=== PATIENT | male | born 1950 | race Caucasian/White ===

== ENCOUNTER 2017-02-03 10:20 | Inpatient (IN) ==
--- NOTE | 2017-02-03 11:29 | Emergency Department Note ---
Disposition Clinical Impression: Cellulitis Qualifiers: Site of cellulitis: extremity Site of cellulitis of extremity: lower extremity Laterality: left Qualified Code(s): L03.116 - Cellulitis of left lower limb Disposition: Admitted As Inpatient Extremity Problem HPI - General Chief complaint: ED Extremity Problem,Nontraumatic Stated complaint: worsening, bacterial infection L leg Time Seen by Provider: 02/03/17 10:30 Source: patient Limitations: no limitations Nursing Notes Reviewed: Yes Vital Signs Reviewed: Yes - History of Present Illness HPI Narrative: I did review the previous record and the patient was seen yesterday at the wound care clinic and was recommended to be admitted because he did not feel cefdinir antibiotics with a positive Pseudomonas culture and the patient refused admission yesterday but is willing to be admitted today. He does have 2 months of ulceration on the posterior aspect of the left calf area. In review of the old record this was thought to be from his significant lymphedema. He denies any associated fever or vomiting or confusion. He does have drainage of purulent material. He does not have any associated numbness. Social history: Smoking, no alcohol. Is here with his and grandson Pain Scale: 0 - Related Data Home Medications Medication Instructions Recorded Confirmed Lisinopril [Zestril] 10 mg PO DAILY 01/18/16 02/03/17 Montelukast Sodium [Singulair] 10 mg PO DAILY 01/18/16 02/03/17 Tramadol HCl [Ultram] 50 mg PO DAILY PRN 01/18/16 02/03/17 Albuterol Sulfate [Proair Hfa] 1 puff IH Q4H PRN 12/02/16 02/03/17 Fluticasone/Salmeterol [Advair 1 each IH BID 12/02/16 02/03/17 250-50 Diskus] Furosemide [Lasix] 40 mg PO DAILY 02/03/17 02/03/17 Ipratropium/Albuterol Neb [Duoneb] 3 ml IH Q6HR PRN 02/03/17 02/03/17 Previous Rx's Medication Instructions Recorded Ammonium Lactate [Amlactin] 400 gm TP DAILY #1 bottle 12/29/16 Allergies Allergy/AdvReac Type Severity Reaction Status Date / Time levofloxacin Allergy Swelling Verified 02/03/17 10:28 of Lip/Tongue/Throat Penicillins Allergy Swelling Verified 02/03/17 10:28 of Lip/Tongue/Throat Review of Systems: Constitutional: No fever Vision: No blurred vision ENT: No rhinorrhea Respiratory: No cough Allergic: No allergies : No blood in urine GI: No blood in stool Hematologic: No bruising Dermatologic: No skin rash Musculoskeletal: + pain in the extremities left lower extremity but it is minimal to moderate and not severe pain Neuro: No numbness of the extremities Past Medical History - Past Medical History Medical history: Reports: COPD, hypertension Surgical history: Reports: appendectomy, herniorrhaphy (X2) Psychiatric history: Reports: no psych history - Social History Smoking Status: Current every day smoker Smokeless Tobacco Status: No Alcohol use: Reports: none Drug use: Reports: none Physical Exam Patient did feel outpatient antibiotics and does have a Pseudomonas infection does have significant lymphedema with nonhealing ulceration for less several months and I did attempt to contact the treating provider from yesterday however they do not have admitting privileges here and the other note from yesterday was from the emergency medicine provider so the patient will be started on antibiotics here and be admitted to the hospitalist [id number] - General Limitations: no limitations General appearance: alert, in no apparent distress Course Vital Signs Temperature 98.4 F 02/03/17 10:23 Pulse Rate 93 02/03/17 10:23 Respiratory Rate 20 02/03/17 10:23 Blood Pressure 145/82 02/03/17 10:23 O2 Sat by Pulse Oximetry 95 02/03/17 10:23 Temperature 99.3 F 02/03/17 19:02 Pulse Rate 96 02/03/17 19:02 Respiratory Rate 16 02/03/17 20:23 Blood Pressure 137/77 02/03/17 19:02 O2 Sat by Pulse Oximetry 92 02/03/17 20:23 Oxygen Delivery Oxygen Delivery Room Air Extremity Problem, Nontraumati - MDM Narrative Medical decision making narrative: I did review the culture results, positive for pseudomonas, the patient started on antibiotics. Case discussed with the hospitalist who except the patient for admission. He did receive pain medication. Is admitted. 1523 - Medical Records Medical records reviewed: Yes I reviewed the patient's medical records. - Lab Data Lab results reviewed: Yes I reviewed the patient's lab results. Result diagrams: 02/03/17 11:40 12/15/17 11:40 Lab Results 02/03/17 02/03/17 02/03/17 Range/Units 11:40 11:40 11:40 WBC 9.2 (4.3-11.1) K/mcL RBC 5.13 (4.19-5.50) M/mcL Hgb 15.1 (12.9-16.9) g/dL Hct 47.2 (37.5-50.1) % MCV 92.0 (83.0-100.0) fL MCH 29.4 (28.0-33.3) pg MCHC 32.0 (31.6-35.5) g/dL RDW 14.4 (11.5-14.5) % Plt Count 256 (140-400) K/mcL MPV 10.4 (9.4-12.4) fL Sodium 140 (136-145) mEq/L Potassium 3.9 (3.5-4.5) mEq/L Chloride 102 (98-109) mEq/L Carbon Dioxide 30 H (19-29) mEq/L BUN 12 (8-26) mg/dL Creatinine 0.73 (0.72-1.25) mg/dL Est GFR ( Amer) > 60 (> 60) Est GFR (Non-Af Amer) > 60 (> 60) BUN/Creatinine Ratio 16 (6-26) Glucose 97 (70-99) mg/dL Calculated Osmolality 290 (280-300) Lactic Acid 1.6 (0.5-2.2) mmol/L Calcium 9.0 (8.6-10.8) mg/dL
[2017-02-03 11:59] LABS: BUN/Creatinine Ratio 16 (6-26); Blood Urea Nitrogen 12 mg/dL (8-26); Carbon Dioxide 30 mEq/L (19-29); Chloride 102 mEq/L (98-109); Glucose 97 mg/dL (70-99); Osmolality,Calculated 290 (280-300); Potassium 3.9 mEq/L (3.5-4.5); Sodium 140 mEq/L (136-145); eGFR For African Americans > 60 (> 60); eGFR For Non-African Americans > 60 (> 60)
[2017-02-03 12:00] LABS: Hematocrit 47.2 % (37.5-50.1); Hemoglobin 15.1 g/dL (12.9-16.9); Mean Corpuscular Hemoglobin 29.4 pg (28.0-33.3); Mean Platelet Volume 10.4 fL (9.4-12.4); Platelet Count 256 K/mcL (140-400); Red Blood Count 5.13 M/mcL (4.19-5.50); Red Cell Distribution Width 14.4 % (11.5-14.5)
[2017-02-03] MEDS ORDERED: Ondansetron 4 MG/2 ML VIAL IVP ONE (14:21)
[2017-02-03] MEDS ORDERED: *HR* HYDROmorphone (PF) 1 MG/ML SYRINGE IVP ONE (14:21)
[2017-02-03] MEDS: Meropenem 1,000 MG in Water for inj. (sterile) 10 ML IVP SCH ×2 (14:40→23:45)
[2017-02-03] MEDS ORDERED: traMADol 50 MG TABLET PO PRN (15:51)
[2017-02-03] MEDS ORDERED: Naloxone 0.4 MG/ML INJ IVP PRN ×2 (15:58→16:18)
[2017-02-03] MEDS ORDERED: Acetaminophen 325 MG TABLET PO PRN (15:58)
[2017-02-03] MEDS ORDERED: *HR* Morphine 2 MG/ML SYRINGE IVP PRN (15:58)
[2017-02-03] MEDS ORDERED: Meropenem 1,000 MG in 0.9 % Sodium Chloride Mini Bag 100 ML IVPB SCH (16:00)
[2017-02-03] MEDS: Ipratropium/Albuterol Neb 3 ML IH PRN ×2 (16:04→22:36)
--- NOTE | 2017-02-03 16:08 | Internal Med History&Physical ---
Date of Encounter: 02/03/17 Time of Encounter: 16:05 Assessment and Plan (1) Cellulitis Current visit: Yes Status: Acute Chronic Cellulitis of left lower extremity, requiring greater than two-month history of left posterior lower leg ulcer Being followed by [facility] wound care in [place]; wound care physician requested patient to hospital for IV antibiotics Continues to have edema, erythema and clear serous drainage Was initially treated at [facility] where cultures grew Pseudomonas and group B strep We will start meropenem to cover Pseudomonas and strep Obtain additional wound cultures to further guide antibiotic coverage and adjust as clinically appropriate Consult wound management team for cleansing and dressing recommendations Tramadol and IV morphine for pain management CBC BMP in the morning Qualifiers: Site of cellulitis: extremity Site of cellulitis of extremity: lower extremity Laterality: left Qualified Code(s): L03.116 - Cellulitis of left lower limb (2) COPD exacerbation Current visit: Yes Status: Acute Admits to an increase in wheezing over the last couple of days. Final wheezing per auscultation bilateral anterior posterior lung Continue bronchodilators at home dose And 40 mg IV push Solu-Medrol every 8 hours Remains on room air with a sPO2 of 93% without any distress; O2 support PRN with nasal cannula, continuous SPO2 monitoring (3) Hypertension Current visit: Yes Status: Acute History of essential hypertension. Blood pressure currently stable. Continue SRINATH inhibitor Qualifiers: Hypertension type: essential hypertension Qualified Code(s): I10 - Essential (primary) hypertension (4) Tobacco abuse Current visit: Yes Status: Acute Continues to smoke Tobacco cessation counseling provided Does not wish to quit at this time Denies need for nicotine patch (5) Obesity Current visit: Yes Status: Acute Morbidly obese Discussed lifestyle modifications including exercise and diet Denies need for dietary consult Qualifiers: Obesity type: due to excess calories Obesity classification: adult class 3 (BMI >= 40) Serious obesity comorbidity presence: without serious comorbidity Body mass index: BMI 40.0-44.9 Qualified Code(s): E66.01 - Morbid (severe) obesity due to excess calories; Z68.41 - Body mass index (BMI) 40.0-44.9, adult ; Z68.41 - Body mass index (BMI) 40.0-44.9, adult; Z68.41 - Body mass index (BMI ) 40.0-44.9, adult; Z68.41 - Body mass index (BMI) 40.0-44.9, adult (6) DVT prophylaxis Current visit: Yes Status: Acute History DVT due to decreased mobility associated hospital stay Heparin subcutaneous 5000 units twice a day Internal Medicine - H&P: HPI Chief complaint: Worsening of chronic left leg wound Admitted From: Home Plans for Post Hospital Care: Home History of present illness: Mr. García is a 66 year old male with the only PMH of COPD and HTN. He presents today with a greater than two-month history of a left posterior calf wound. The patient has been following with the [facility] wound team and a [facility]. He has previously been on antibiotics without any improvement. Most recently was on antibiotics for a full 10 day course without any improvement at all. Due to continued drainage is so his wound care provider yesterday who advised him to come to the ED for admission for IV antibiotic therapy. He denies any fever or chills, fatigue, and malaise, nausea, vomiting , diarrhea, numbness and tingling. He admits to burning, drainage and additional swelling. Past Med Surg Social Fam HX - Past Medical History Medical history: COPD, hypertension Psychiatric history: no psych history - Past Surgical History Surgical History: appendectomy, herniorrhaphy (X2) - Social History Smoking Status: Current every day smoker Smokeless Tobacco Status: No Alcohol use: none Drug use: none - Additional Family History Additional family history: Noncontributory Internal Medicine - H&P: Meds Lisinopril [Zestril] 10 mg PO DAILY 01/18/16 [History] Montelukast Sodium [Singulair] 10 mg PO DAILY 01/18/16 [History] Tramadol HCl [Ultram] 50 mg PO DAILY PRN 01/18/16 [History] Albuterol Sulfate [Proair Hfa] 1 puff IH Q4H PRN 12/02/16 [History] Fluticasone/Salmeterol [Advair 250-50 Diskus] 1 each IH BID 12/02/16 [History] Ammonium Lactate [Amlactin] 400 gm TP DAILY #1 bottle 12/29/16 [Rx] Furosemide [Lasix] 40 mg PO DAILY 02/03/17 [History] Ipratropium/Albuterol Neb [Duoneb] 3 ml IH Q6HR PRN 02/03/17 [History] 3 Allergy/AdvReac Type Severity Reaction Status Date / Time levofloxacin Allergy Swelling Verified 02/03/17 10:28 of Lip/Tongue/Throat Penicillins Allergy Swelling Verified 02/03/17 10:28 of Lip/Tongue/Throat All Systems PM: A 10-system review of systems was performed and is negative for pertinent findings except as documented above in the HPI. - Constitutional Constitutional: no chills, no fever(s), no night sweats - EENT Eyes: no change in vision, no discharge, no pain, no photophobia Ears: no ear discharge, no ear pain, no tinnitus Nose, mouth and throat: no dysphagia, no nasal discharge, no neck pain, no sore throat - Cardiovascular Cardiovascular ROS IM: no chest pain, no diaphoresis, no dyspnea, no lightheadedness, no palpitations, no syncope - Respiratory Respiratory: wheezing (chronic worse over the last few days), no cough, no dyspnea, no excessive phlegm production - Gastrointestinal Gastrointestinal: no abdominal pain, no diarrhea, no hematemesis, no hematochezia, no melena, no nausea, no vomiting - Musculoskeletal Musculoskeletal ROS IM: no numbness, no tingling - Integumentary Integumentary IM: as per HPI, non-healing lesions, sores, no rash, no unusual bruising - Neurological Neurological ROS: no confusion, no convulsions, no focal weakness, no numbness, no tingling, no tremor(s) - Hematologic/Lymphatic Hematologic/Lymphatic: no easy bruising - Constitutional Vitals: Temp Pulse Resp BP Pulse Ox 98.4 F 88 18 125/79 93 02/03/17 10:23 02/03/17 14:16 02/03/17 14:16 02/03/17 14:16 02/03/17 14:16 General appearance: Present: cooperative, A&O X 3, no acute distress, answers questions appropriately - Head Head exam: Present: atraumatic, normocephalic - Eye Eye exam: Present: PERRL, conjuntiva pink, sclera anicteric Pupils: Present: PERRL - Neck Neck exam general surgery: Present: supple, trachea midline. Absent: lymphadenopathy - Respiratory Respiratory exam: Present: CTAB, wheezes (fine). Absent: accessory muscle use, rales, rhonchi - Cardiovascular Cardiovascular exam: Present: RRR, +S1, +S2. Absent: diastolic murmur, gallop, rubs, systolic murmur - GI/Abdominal GI/Abdominal exam: Present: normal bowel sounds, soft, no peritoneal signs. Absent: distended, tenderness - Extremities Exam Extremities exam: Present: warm, radial pulses palpable and symmetrical. Absent : calf tenderness, cyanotic, pedal edema - Expanded Lower Extremities Exam Lower Leg exam: Present: erythema, swelling, tenderness 1 - Erythematous, swollen and tender leg wound with clear serous drainage - Neurological Exam Neurological exam: Present: CN II-XII intact, oriented X3, no focal deficits. Absent: pronater drift, facial droop, speech deficit - Skin Skin exam: Present: erythema. Absent: dry, intact Internal Med - H&P Results - Labs CBC & Chem 7: 02/03/17 11:40 02/03/17 11:40
[2017-02-03] MEDS: MethylPREDNISolone 40 MG/ML VIAL IVP SCH ×2 (18:36→23:45)
[2017-02-03] MEDS: *HR* Heparin 5,000 UNIT/ML VIAL SQ SCH (18:36)
[2017-02-03] MEDS: Budesonide/Formoterol 80/4.5 MDI IH SCH (20:22)
[2017-02-04] MEDS ORDERED: Meropenem 1,000 MG in Water for inj. (sterile) 10 ML IVPB SCH
[2017-02-04 05:31] LABS: Basophils % 0.2 %; Eosinophils % 0.1 %; Hematocrit 48.7 % (37.5-50.1); Hemoglobin 15.7 g/dL (12.9-16.9); Immature Granulocytes % 0.6 % (0-4); Lymphocytes # 0.8 K/mcL (0.6-4.6); Lymphocytes % 8.6 %; Mean Corpuscular HGB Conc 32.2 g/dL (31.6-35.5); Mean Corpuscular Hemoglobin 29.4 pg (28.0-33.3); Mean Corpuscular Volume 91.2 fL (83.0-100.0); Mean Platelet Volume 10.4 fL (9.4-12.4); Monocytes # 0.1 K/mcL (0.0-1.3); Monocytes % 1.5 %; Platelet Count 277 K/mcL (140-400); Red Blood Count 5.34 M/mcL (4.19-5.50); Red Cell Distribution Width 14.3 % (11.5-14.5)
[2017-02-04 05:43] LABS: BUN/Creatinine Ratio 19 (6-26); Blood Urea Nitrogen 15 mg/dL (8-26); Calcium 9.3 mg/dL (8.6-10.8); Carbon Dioxide 24 mEq/L (19-29); Chloride 104 mEq/L (98-109); Glucose 208 mg/dL (70-99); Osmolality,Calculated 293 (280-300); Potassium 4.3 mEq/L (3.5-4.5); Sodium 138 mEq/L (136-145); eGFR For African Americans > 60 (> 60); eGFR For Non-African Americans > 60 (> 60)
[2017-02-04] MEDS: Furosemide 40 MG TABLET PO SCH (07:15)
[2017-02-04] MEDS: *HR* Heparin 5,000 UNIT/ML VIAL SQ SCH ×2 (07:16→20:50)
[2017-02-04] MEDS: Meropenem 1,000 MG in Water for inj. (sterile) 10 ML IVP SCH ×2 (07:17→16:42)
[2017-02-04] MEDS: MethylPREDNISolone 40 MG/ML VIAL IVP SCH (07:25)
[2017-02-04] MEDS: Budesonide/Formoterol 80/4.5 MDI IH SCH ×2 (07:57→21:10)
[2017-02-04] MEDS: Ipratropium/Albuterol Neb 3 ML IH PRN ×3 (07:57→21:09)
[2017-02-04] MEDS: Ammonium Lactate 30 APPL/225 GM BOTTLE TP SCH (08:38)
[2017-02-04] MEDS ORDERED: predniSONE 20 MG TABLET PO SCH (09:00)
--- NOTE | 2017-02-04 09:31 | Internal Med Progress Note ---
Date of Encounter: 02/04/17 Time of Encounter: 09:10 - Assessment and plan (1) Cellulitis Current Visit: Yes Status: Acute Assessment and plan: Patient with chronic velous ulcers and wounds with prolonged need for wound care . L>R Left leg/calf wound said to be worsening with worsening serous discharge Hx of Pseudomonas and Strep agalactiae on prior wound culture from 01/11/17- Sensitive to Cefepime?Ceftazidime/ciprofloacin/Imipenem/Zosyn and Levaquin Patient with allergies to Penicillin and Levaquin continue Meropenem IV Wound culture has been sent, will follow Podiatry- Sessions, consulted lead pressman consulted, will await and follow recommendations Qualifiers: Site of cellulitis: extremity Site of cellulitis of extremity: lower extremity Laterality: left Qualified Code(s): L03.116 - Cellulitis of left lower limb (2) COPD exacerbation Current Visit: Yes Status: Acute Assessment and plan: Change Solu-Medrol to prednisone. Continue DuoNeb's. (3) Hypertension Current Visit: Yes Status: Chronic Assessment and plan: Controlled on current medications, continue the same. Qualifiers: Hypertension type: essential hypertension Qualified Code(s): I10 - Essential (primary) hypertension (4) RENE (obstructive sleep apnea) Current Visit: Yes Status: Chronic Assessment and plan: CPAP at bedtime. (5) Tobacco abuse Current Visit: Yes Status: Chronic Assessment and plan: Declines any need for nicotine replacement therapy. Tobacco cessation. (6) Obesity Current Visit: Yes Status: Chronic Assessment and plan: Lifestyle modification Qualifiers: Obesity type: due to excess calories Obesity classification: adult class 3 (BMI >= 40) Serious obesity comorbidity presence: without serious comorbidity Body mass index: BMI 45.0-49.9 Qualified Code(s): E66.01 - Morbid (severe) obesity due to excess calories; Z68.42 - Body mass index (BMI) 45.0-49.9, adult ; Z68.42 - Body mass index (BMI) 45.0-49.9, adult; Z68.42 - Body mass index (BMI ) 45.0-49.9, adult; Z68.42 - Body mass index (BMI) 45.0-49.9, adult (7) Venous ulcer of leg Current Visit: Yes Status: Chronic Assessment and plan: chronic, infected, see cellulitis for details Qualifiers: Laterality: bilateral Qualified Code(s): I83.019 - Varicose veins of right lower extremity with ulcer of unspecified site; I83.029 - Varicose veins of left lower extremity with ulcer of unspecified site; I83.029 - Varicose veins of left lower extremity with ulcer of unspecified site; I83.029 - Varicose veins of left lower extremity with ulcer of unspecified site - Subjective Interval history: Seen and evaluated at the bedside. 65-year-old male with past medical history of morbid obesity, chronic venous stasis with chronic venostasis ulcers, Tobacco abuse, COPD, obstructive sleep apnea and hypertension. He is admitted and being managed for cellulitis and worsening off his left hallux ulcer. He has a medical history of Pseudomonas infection. No new complains, his breathing has improved, he does not wear home O2 at home - Constitutional Vitals: Temp Pulse Resp BP Pulse Ox 98.3 F 96 15 127/82 92 02/04/17 08:41 02/04/17 08:41 02/04/17 08:41 02/04/17 08:41 02/04/17 08:41 General appearance: Present: cooperative, A&O X 3, morbidly obese, no acute distress, answers questions appropriately - Head Head exam: Present: atraumatic, normocephalic - Eye Eye exam: Present: PERRL, conjuntiva pink, sclera anicteric Pupils: Present: PERRL - Neck Neck exam general surgery: Present: supple, trachea midline. Absent: lymphadenopathy - Respiratory Respiratory exam: Present: CTAB. Absent: accessory muscle use, rales, rhonchi, wheezes - Cardiovascular Cardiovascular exam: Present: RRR, +S1, +S2. Absent: diastolic murmur, gallop, rubs, systolic murmur - GI/Abdominal GI/Abdominal exam: Present: normal bowel sounds, soft, no peritoneal signs. Absent: distended, tenderness - Extremities Exam Additional comments: Bilateral chronic edema of LE Left calf with a wide superficial ulcer, slough, purulent discharge, raised edges. Wound dressing soaked, removed Pulses on both LE are present. - Neurological Exam Neurological exam: Present: alert, CN II-XII intact, oriented X3, no focal deficits. Absent: pronater drift, facial droop, speech deficit - Skin Skin exam: Present: dry, intact Internal Medicine: Result - Labs CBC & Chem 7: 02/04/17 05:08 02/04/17 05:08 Labs: Short CBC 02/04/17 Range/Units 05:08 WBC 9.0 (4.3-11.1) K/mcL Hgb 15.7 (12.9-16.9) g/dL Hct 48.7 (37.5-50.1) % Plt Count 277 (140-400) K/mcL Neutrophils # 8.0 (1.6-8.9) K/mcL BMP 02/04/17 05:08 Sodium 138 Potassium 4.3 Chloride 104 Carbon Dioxide 24 BUN 15 Creatinine 0.81 Glucose 208 H Calcium 9.3 Consult Discharge Plan - Plan Referrals: Keagan Mcdonald MD [Primary Care Provider] -
[2017-02-04] MEDS: traMADol 50 MG TABLET PO PRN (16:40)
--- NOTE | 2017-02-04 22:37 | Podiatry Progress Note ---
Date of Encounter: 02/04/17 Time of Encounter: 22:35 - Assessment and Plan (1) Venous ulcer of leg Current Visit: Yes Status: Chronic Obtained MRI which demonstrates no obvious drainable abscess. Surgery will be avoided at this time and he will likely benefit most from continued antibiotics and local wound care. Unna boot dressings would be most beneficial at this time with multilayer compression wraps. Qualifiers: Laterality: bilateral Qualified Code(s): I83.019 - Varicose veins of right lower extremity with ulcer of unspecified site; I83.029 - Varicose veins of left lower extremity with ulcer of unspecified site; I83.029 - Varicose veins of left lower extremity with ulcer of unspecified site; I83.029 - Varicose veins of left lower extremity with ulcer of unspecified site Subjective Principal diagnosis: Left leg venous stasis ulcer Interval history: Patient presented to the hospital complaining of increased drainage and a wound on his left leg. Patient relates that he has venous stasis. Patient relates that this is an ongoing problem. Objective - Vital Signs Vital Signs: Vital Signs Temp Pulse Resp BP Pulse Ox 02/04/17 21:12 18 99 02/04/17 20:16 98.1 F 101 15 114/68 100 02/04/17 17:00 97.8 F 98 15 146/79 100 02/04/17 16:24 18 98 02/04/17 15:47 98.1 F 92 18 128/68 98 02/04/17 13:29 97.9 F 99 18 113/70 95 02/04/17 10:59 97.6 F 97 15 119/72 88 02/04/17 08:41 98.3 F 96 15 127/82 92 02/04/17 07:58 18 89 02/04/17 06:31 97.8 F 101 18 136/84 89 02/04/17 04:12 97.7 F 95 18 147/80 88 02/04/17 00:07 98.2 F 93 16 105/64 88 02/03/17 22:37 16 93 Intake and Output 02/04/17 02/04/17 02/04/17 07:59 15:59 23:59 Intake Total 720 / 720 240 / 240 Output Total 850 / 850 700 / 700 0 / 0 Balance -840 / -840 240 / 240 Intake: IV Fluids Merrem 1,000 MG In Water for inj. (sterile) 10 ML @ 200 mls/ hr IVP Q8HR LUCIE Rx#:[id number] Oral 720 / 720 240 / 240 Output: Urine 850 / 850 700 / 700 0 / 0 Other: Meal Lunch Dinner Percent of Meal Consumed 100% 100% # Voids 1 - Exam Exam: Superficial ulceration noted on the posterior aspect of the right leg consistent with a venous stasis ulceration. Capillary fill time intact to the digits. Pedal pulses difficult to palpate secondary to venous stasis. Severe edema noted to bilateral lower extremities worse on the left than the right. Sensation intact to light touch at the level of the ankles. Erythema noted to the posterior aspect of the left leg consistent with possible infection. MRI reveals no obvious fluid collection just significant cellulitis. - Lab Result Diagrams: 02/04/17 05:08 02/04/17 05:08 Labs: Abnormal lab results Glucose 208 mg/dL (70-99) H 02/04/17 05:08 Consult Discharge Plan - Plan Referrals: Keagan Mcdonald MD [Primary Care Provider] -
[2017-02-05] MEDS: Meropenem 1,000 MG in Water for inj. (sterile) 10 ML IVP SCH ×3 (01:43→16:44)
[2017-02-05 05:21] LABS: Basophils % 0.3 %; Eosinophils # 0.1 K/mcL (0.0-0.6); Eosinophils % 0.6 %; Hemoglobin 14.3 g/dL (12.9-16.9); Immature Granulocytes % 0.4 % (0-4); Lymphocytes # 2.5 K/mcL (0.6-4.6); Lymphocytes % 20.3 %; Mean Corpuscular HGB Conc 31.8 g/dL (31.6-35.5); Mean Corpuscular Hemoglobin 29.3 pg (28.0-33.3); Mean Corpuscular Volume 92.2 fL (83.0-100.0); Mean Platelet Volume 10.4 fL (9.4-12.4); Monocytes # 1.3 K/mcL (0.0-1.3); Monocytes % 10.2 %; Neutrophils # 8.5 K/mcL (1.6-8.9); Platelet Count 258 K/mcL (140-400); Red Blood Count 4.88 M/mcL (4.19-5.50); Red Cell Distribution Width 14.7 % (11.5-14.5); Segmented Neutrophils % 68.2 %
[2017-02-05 05:39] LABS: BUN/Creatinine Ratio 24 (6-26); Blood Urea Nitrogen 17 mg/dL (8-26); Calcium 8.9 mg/dL (8.6-10.8); Carbon Dioxide 27 mEq/L (19-29); Chloride 106 mEq/L (98-109); Glucose 125 mg/dL (70-99); Osmolality,Calculated 293 (280-300); Potassium 3.9 mEq/L (3.5-4.5); Sodium 140 mEq/L (136-145); eGFR For African Americans > 60 (> 60); eGFR For Non-African Americans > 60 (> 60)
[2017-02-05] MEDS: *HR* Heparin 5,000 UNIT/ML VIAL SQ SCH ×2 (06:15→16:44)
[2017-02-05] MEDS: Budesonide/Formoterol 80/4.5 MDI IH SCH ×2 (07:52→21:57)
[2017-02-05] MEDS: Ipratropium/Albuterol Neb 3 ML IH PRN ×3 (07:52→21:56)
[2017-02-05] MEDS: Furosemide 40 MG TABLET PO SCH (09:01)
[2017-02-05] MEDS: predniSONE 20 MG TABLET PO SCH (09:01)
[2017-02-05] MEDS: traMADol 50 MG TABLET PO PRN (09:02)
--- NOTE | 2017-02-05 09:39 | Internal Med Progress Note ---
Date of Encounter: 02/05/17 Time of Encounter: 09:36 - Assessment and plan (1) Cellulitis Current Visit: Yes Status: Acute Assessment and plan: Patient with chronic venous ulcers and wounds with prolonged need for wound care . L>R Left leg/calf wound said to be worsening with worsening serous discharge Hx of Pseudomonas and Strep agalactiae on prior wound culture from 01/11/17- Sensitive to Cefepime?Ceftazidime/ciprofloacin/Imipenem/Zosyn and Levaquin Patient with allergies to Penicillin and Levaquin Current wound culture 02/03 growing pseudomonas, sensitivity pending continue Meropenem IV Podiatry eval noted and appreciated wringer machine operator consulted, will await and follow recommendations Qualifiers: Site of cellulitis: extremity Site of cellulitis of extremity: lower extremity Laterality: left Qualified Code(s): L03.116 - Cellulitis of left lower limb (2) COPD exacerbation Current Visit: Yes Status: Acute Assessment and plan: Improved, continue duonebs and prednisone (3) Hypertension Current Visit: Yes Status: Chronic Assessment and plan: Controlled on current medications, continue the same. Qualifiers: Hypertension type: essential hypertension Qualified Code(s): I10 - Essential (primary) hypertension (4) RENE (obstructive sleep apnea) Current Visit: Yes Status: Chronic Assessment and plan: CPAP at bedtime. (5) Tobacco abuse Current Visit: Yes Status: Chronic Assessment and plan: Declines any need for nicotine replacement therapy. Tobacco cessation. (6) Obesity Current Visit: Yes Status: Chronic Assessment and plan: Lifestyle modification Qualifiers: Obesity type: due to excess calories Obesity classification: adult class 3 (BMI >= 40) Serious obesity comorbidity presence: without serious comorbidity Body mass index: BMI 45.0-49.9 Qualified Code(s): E66.01 - Morbid (severe) obesity due to excess calories; Z68.42 - Body mass index (BMI) 45.0-49.9, adult ; Z68.42 - Body mass index (BMI) 45.0-49.9, adult; Z68.42 - Body mass index (BMI ) 45.0-49.9, adult; Z68.42 - Body mass index (BMI) 45.0-49.9, adult (7) Venous ulcer of leg Current Visit: Yes Status: Chronic Assessment and plan: chronic, infected, see cellulitis for details Qualifiers: Laterality: bilateral Qualified Code(s): I83.019 - Varicose veins of right lower extremity with ulcer of unspecified site; I83.029 - Varicose veins of left lower extremity with ulcer of unspecified site; I83.029 - Varicose veins of left lower extremity with ulcer of unspecified site; I83.029 - Varicose veins of left lower extremity with ulcer of unspecified site - Subjective Interval history: Seen and evaluated at the bedside. 65-year-old male with past medical history of morbid obesity, chronic venous stasis with chronic venostasis ulcers, Tobacco abuse, COPD, obstructive sleep apnea and hypertension. He is admitted and being managed for cellulitis and worsening off his left calf ulcer. He has a medical history of Pseudomonas infection. Wound culture in this admission is growing Pseudomonas, sensitivity is pending Podiatry eval noted, Left leg MRI noted, no collection, no OM No new complains, his breathing has improved, he does not wear home O2 at home - Constitutional Vitals: Temp Pulse Resp BP Pulse Ox 97.6 F 85 18 115/75 97 02/05/17 04:16 02/05/17 04:16 02/05/17 04:16 02/05/17 04:16 02/05/17 04:16 General appearance: Present: cooperative, A&O X 3, morbidly obese, no acute distress, answers questions appropriately - Head Head exam: Present: atraumatic, normocephalic - Eye Eye exam: Present: PERRL, conjuntiva pink, sclera anicteric Pupils: Present: PERRL - Neck Neck exam general surgery: Present: supple, trachea midline. Absent: lymphadenopathy - Respiratory Respiratory exam: Present: CTAB. Absent: accessory muscle use, rales, rhonchi, wheezes - Cardiovascular Cardiovascular exam: Present: RRR, +S1, +S2. Absent: diastolic murmur, gallop, rubs, systolic murmur - Extremities Exam Additional comments: Bilateral chronic edema of LE Left calf with a wide superficial ulcer, slough, purulent discharge, raised edges. Wound dressing clean and dry Pulses on both LE are present. - Neurological Exam Neurological exam: Present: alert, CN II-XII intact, oriented X3, no focal deficits. Absent: pronater drift, facial droop, speech deficit - Skin Skin exam: Present: dry, intact Internal Medicine: Result - Labs CBC & Chem 7: 02/05/17 04:53 02/05/17 04:53 Labs: Short CBC 02/05/17 Range/Units 04:53 WBC 12.5 H (4.3-11.1) K/mcL Hgb 14.3 (12.9-16.9) g/dL Hct 45.0 (37.5-50.1) % Plt Count 258 (140-400) K/mcL Neutrophils # 8.5 (1.6-8.9) K/mcL BMP 02/05/17 04:53 Sodium 140 Potassium 3.9 Chloride 106 Carbon Dioxide 27 BUN 17 Creatinine 0.71 L Glucose 125 H Calcium 8.9 - Impressions Impressions Lower Extremity MRI 02/04/17 18:41 IMPRESSION: 1. Shallow soft tissue ulceration over the posterolateral aspect of the distal calf with diffuse cellulitis. No drainable fluid collection. 2. No osteomyelitis or other acute osseous abnormality. D/ / Jimmy Olivares MD / Jimmy Olivares MD Interpreting Provider: Jimmy Olivares MD Consult Discharge Plan - Plan Referrals: Keagan Mcdonald MD [Primary Care Provider] -
[2017-02-05] MEDS: Ammonium Lactate 30 APPL/225 GM BOTTLE TP SCH (16:45)
[2017-02-06] MEDS: Meropenem 1,000 MG in Water for inj. (sterile) 10 ML IVP SCH ×2 (00:19→09:56)
[2017-02-06] MEDS: Ipratropium/Albuterol Neb 3 ML IH PRN ×5 (03:45→23:29)
[2017-02-06 05:48] LABS: Basophils # 0.1 K/mcL (0.0-0.2); Basophils % 0.7 %; Eosinophils # 0.1 K/mcL (0.0-0.6); Hematocrit 44.5 % (37.5-50.1); Hemoglobin 14.2 g/dL (12.9-16.9); Immature Granulocytes % 0.6 % (0-4); Lymphocytes # 2.9 K/mcL (0.6-4.6); Lymphocytes % 27.8 %; Mean Corpuscular HGB Conc 31.9 g/dL (31.6-35.5); Mean Corpuscular Hemoglobin 29.8 pg (28.0-33.3); Mean Corpuscular Volume 93.5 fL (83.0-100.0); Mean Platelet Volume 10.4 fL (9.4-12.4); Monocytes # 0.9 K/mcL (0.0-1.3); Neutrophils # 6.3 K/mcL (1.6-8.9); Platelet Count 234 K/mcL (140-400); Red Blood Count 4.76 M/mcL (4.19-5.50); Red Cell Distribution Width 14.8 % (11.5-14.5); Segmented Neutrophils % 60.9 %
[2017-02-06 06:11] LABS: BUN/Creatinine Ratio 25 (6-26); Blood Urea Nitrogen 19 mg/dL (8-26); Calcium 8.6 mg/dL (8.6-10.8); Carbon Dioxide 28 mEq/L (19-29); Chloride 105 mEq/L (98-109); Glucose 107 mg/dL (70-99); Osmolality,Calculated 297 (280-300); Potassium 3.9 mEq/L (3.5-4.5); Sodium 142 mEq/L (136-145); eGFR For African Americans > 60 (> 60); eGFR For Non-African Americans > 60 (> 60)
[2017-02-06] MEDS: *HR* Heparin 5,000 UNIT/ML VIAL SQ SCH ×2 (06:21→18:43)
[2017-02-06] MEDS ORDERED: Vancomycin 2,000 MG in D5% in Water 250 ML IVPB SCH (08:00)
[2017-02-06] MEDS: Furosemide 40 MG TABLET PO SCH (09:56)
[2017-02-06] MEDS: predniSONE 20 MG TABLET PO SCH (09:56)
[2017-02-06] MEDS: Budesonide/Formoterol 80/4.5 MDI IH SCH ×2 (10:27→20:17)
[2017-02-06] MEDS: Vancomycin 2,000 MG in D5% in Water 500 ML IVPB SCH ×2 (11:01→20:31)
--- NOTE | 2017-02-06 12:17 | Internal Med Progress Note ---
Date of Encounter: 02/06/17 Time of Encounter: 12:14 - Assessment and plan (1) Cellulitis Current Visit: Yes Status: Acute Assessment and plan: Patient with chronic venous ulcers and wounds with prolonged need for wound care . L>R Left leg/calf wound said to be worsening with worsening serous discharge Hx of Pseudomonas and Strep agalactiae on prior wound culture from 01/11/17- Sensitive to Cefepime?Ceftazidime/ciprofloacin/Imipenem/Zosyn and Levaquin Patient with allergies to Penicillin and Levaquin Current wound culture 02/03 growing pseudomonas and E. faecalis Received Meropenem IV-day 5 Add Vancomycin -Day 1 Change Meropenem to Cefepime, based on sensitivity Consult Infectious disease Podiatry evedith noted and appreciated career resource technician consulted Patient with penicillin and levoflox allergies-angioedema, will need IV antibiotics upon discharge, SW consulted. Qualifiers: Site of cellulitis: extremity Site of cellulitis of extremity: lower extremity Laterality: left Qualified Code(s): L03.116 - Cellulitis of left lower limb (2) COPD exacerbation Current Visit: Yes Status: Acute Assessment and plan: Improved, continue duonebs and prednisone (3) Hypertension Current Visit: Yes Status: Chronic Assessment and plan: Controlled on current medications, continue the same. Qualifiers: Hypertension type: essential hypertension Qualified Code(s): I10 - Essential (primary) hypertension (4) RENE (obstructive sleep apnea) Current Visit: Yes Status: Chronic Assessment and plan: CPAP at bedtime. (5) Tobacco abuse Current Visit: Yes Status: Chronic Assessment and plan: Declines any need for nicotine replacement therapy. Tobacco cessation. (6) Obesity Current Visit: Yes Status: Chronic Assessment and plan: Lifestyle modification Qualifiers: Obesity type: due to excess calories Obesity classification: adult class 3 (BMI >= 40) Serious obesity comorbidity presence: without serious comorbidity Body mass index: BMI 45.0-49.9 Qualified Code(s): E66.01 - Morbid (severe) obesity due to excess calories; Z68.42 - Body mass index (BMI) 45.0-49.9, adult ; Z68.42 - Body mass index (BMI) 45.0-49.9, adult; Z68.42 - Body mass index (BMI ) 45.0-49.9, adult; Z68.42 - Body mass index (BMI) 45.0-49.9, adult (7) Venous ulcer of leg Current Visit: Yes Status: Chronic Assessment and plan: chronic, infected, see cellulitis for details Qualifiers: Laterality: bilateral Qualified Code(s): I83.019 - Varicose veins of right lower extremity with ulcer of unspecified site; I83.029 - Varicose veins of left lower extremity with ulcer of unspecified site; I83.029 - Varicose veins of left lower extremity with ulcer of unspecified site; I83.029 - Varicose veins of left lower extremity with ulcer of unspecified site - Subjective Interval history: Seen and evaluated at the bedside. 65-year-old male with past medical history of morbid obesity, chronic venous stasis with chronic venostasis ulcers, Tobacco abuse, COPD, obstructive sleep apnea and hypertension. He is admitted and being managed for cellulitis and worsening off his left calf ulcer. He has a medical history of Pseudomonas infection. Podiatry eval noted, Left leg MRI noted, no collection, no OM Wound culture in this admission is growing Pseudomonas, sensitivite to cefepime , ceftazidime, gentamicin, levofloxacin, meropenem, Zosyn, and tobramycin. He is also growing Enterococcus faecalis which is sensitive to ampicillin, daptomycin, Zyvox, and vancomycin. Patient is seen and evaluated at the bedside, he has no new complaints. We will place [place] line and start him on intravenous vancomycin. We will consult infectious assisting for antibiotic recommendation, and follow- up as outpatient for prolonged antibiotics. No new complains, his breathing has improved, he does not wear home O2 at home - Constitutional Vitals: Temp Pulse Resp BP Pulse Ox 98.4 F 80 17 141/89 93 02/06/17 11:27 02/06/17 11:27 02/06/17 11:27 02/06/17 11:27 02/06/17 11:27 General appearance: Present: cooperative, A&O X 3, morbidly obese, no acute distress, answers questions appropriately - Head Head exam: Present: atraumatic, normocephalic - Eye Eye exam: Present: PERRL, conjuntiva pink, sclera anicteric Pupils: Present: PERRL - Neck Neck exam general surgery: Present: supple, trachea midline. Absent: lymphadenopathy - Respiratory Respiratory exam: Present: CTAB. Absent: accessory muscle use, rales, rhonchi, wheezes - Cardiovascular Cardiovascular exam: Present: RRR, +S1, +S2. Absent: diastolic murmur, gallop, rubs, systolic murmur - GI/Abdominal GI/Abdominal exam: Present: normal bowel sounds, soft, no peritoneal signs. Absent: distended, tenderness - Extremities Exam Extremities exam: Present: pedal edema (Chronic venostasis changes with bilateral swelling. Left calf with intact wound dressing.) - Neurological Exam Neurological exam: Present: alert, CN II-XII intact, oriented X3, no focal deficits. Absent: pronater drift, facial droop, speech deficit - Skin Skin exam: Present: dry Internal Medicine: Result - Labs CBC & Chem 7: 02/06/17 03:57 02/06/17 03:57 Labs: Short CBC 02/06/17 Range/Units 03:57 WBC 10.3 (4.3-11.1) K/mcL Hgb 14.2 (12.9-16.9) g/dL Hct 44.5 (37.5-50.1) % Plt Count 234 (140-400) K/mcL Neutrophils # 6.3 (1.6-8.9) K/mcL BMP 02/06/17 03:57 Sodium 142 Potassium 3.9 Chloride 105 Carbon Dioxide 28 BUN 19 Creatinine 0.75 Glucose 107 H Calcium 8.6 Consult Discharge Plan - Plan Referrals: Keagan Mcdonald MD [Primary Care Provider] -
[2017-02-06] MEDS: traMADol 50 MG TABLET PO PRN (16:32)
[2017-02-06] MEDS: Cefepime HCl 1,000 MG in Water for inj. (sterile) 10 ML IVP SCH (16:32)
[2017-02-06] MEDS: Ammonium Lactate 30 APPL/225 GM BOTTLE TP SCH (16:54)
[2017-02-07] MEDS: Cefepime HCl 1,000 MG in Water for inj. (sterile) 10 ML IVP SCH ×2 (01:51→08:48)
[2017-02-07] MEDS: Ipratropium/Albuterol Neb 3 ML IH PRN (03:36)
[2017-02-07 04:40] LABS: Basophils # 0.1 K/mcL (0.0-0.2); Basophils % 0.4 %; Eosinophils # 0.2 K/mcL (0.0-0.6); Eosinophils % 1.3 %; Hematocrit 45.5 % (37.5-50.1); Hemoglobin 14.5 g/dL (12.9-16.9); Immature Granulocytes % 0.4 % (0-4); Lymphocytes # 3.1 K/mcL (0.6-4.6); Lymphocytes % 26.1 %; Mean Corpuscular HGB Conc 31.9 g/dL (31.6-35.5); Mean Corpuscular Hemoglobin 29.2 pg (28.0-33.3); Mean Corpuscular Volume 91.5 fL (83.0-100.0); Mean Platelet Volume 10.2 fL (9.4-12.4); Monocytes # 1.1 K/mcL (0.0-1.3); Neutrophils # 7.4 K/mcL (1.6-8.9); Platelet Count 243 K/mcL (140-400); Red Blood Count 4.97 M/mcL (4.19-5.50); Red Cell Distribution Width 14.6 % (11.5-14.5); Segmented Neutrophils % 62.8 %
[2017-02-07 04:46] LABS: Blood Urea Nitrogen 18 mg/dL (8-26); Calcium 9.1 mg/dL (8.6-10.8); Carbon Dioxide 24 mEq/L (19-29); Chloride 105 mEq/L (98-109); Glucose 109 mg/dL (70-99); Osmolality,Calculated 290 (280-300); Potassium 3.9 mEq/L (3.5-4.5); Sodium 139 mEq/L (136-145)
[2017-02-07 05:00] LABS: BUN/Creatinine Ratio 26 (6-26); eGFR For African Americans > 60 (> 60); eGFR For Non-African Americans > 60 (> 60)
[2017-02-07] MEDS: *HR* Heparin 5,000 UNIT/ML VIAL SQ SCH (06:40)
[2017-02-07] MEDS: Furosemide 40 MG TABLET PO SCH (08:48)
[2017-02-07] MEDS: Vancomycin 2,000 MG in D5% in Water 500 ML IVPB SCH (08:48)
[2017-02-07] MEDS: predniSONE 20 MG TABLET PO SCH (08:48)
[2017-02-07 10:39] VITALS: BP 150/81
[2017-02-07] MEDS: Budesonide/Formoterol 80/4.5 MDI IH SCH (10:57)
--- NOTE | 2017-02-07 11:09 | Discharge Summary ---
Date of Encounter: 02/07/17 Time of Encounter: 11:00 - Discharge Diagnosis (1) COPD exacerbation Priority: Primary Status: Acute (2) Hypertension Priority: Secondary Status: Chronic Qualifiers: Hypertension type: essential hypertension Qualified Code(s): I10 - Essential (primary) hypertension (3) Cellulitis Priority: Primary Status: Acute Qualifiers: Site of cellulitis: extremity Site of cellulitis of extremity: lower extremity Laterality: left Qualified Code(s): L03.116 - Cellulitis of left lower limb - Discharge Medications Prescriptions: Cefepime HCl/Dextrose, Iso-Osm [Cefepime 2 gm Injection] 2 gm IV Q12H 5 Days # 10 froz.piggy Linezolid [Zyvox] 600 mg PO BID #10 tablet predniSONE [PredniSONE] 40 mg PO DAILY #2 tablet Home Medications: Lisinopril [Zestril] 10 mg PO DAILY 01/18/16 [History] Montelukast Sodium [Singulair] 10 mg PO DAILY 01/18/16 [History] Tramadol HCl [Ultram] 50 mg PO DAILY PRN 01/18/16 [History] Albuterol Sulfate [Proair Hfa] 1 puff IH Q4H PRN 12/02/16 [History] Fluticasone/Salmeterol [Advair 250-50 Diskus] 1 each IH BID 12/02/16 [History] Ammonium Lactate [Amlactin] 400 gm TP DAILY #1 bottle 12/29/16 [Rx] Furosemide [Lasix] 40 mg PO DAILY 02/03/17 [History] Ipratropium/Albuterol Neb [Duoneb] 3 ml IH Q6HR PRN 02/03/17 [History] Cefepime HCl/Dextrose, Iso-Osm [Cefepime 2 gm Injection] 2 gm IV Q12H 5 Days # 10 froz.piggy 02/07/17 [Rx] Linezolid [Zyvox] 600 mg PO BID #10 tablet 02/07/17 [Rx] predniSONE [PredniSONE] 40 mg PO DAILY #2 tablet 02/07/17 [Rx] Allergies/Adverse Reactions: 3 Allergy/AdvReac Type Severity Reaction Status Date / Time levofloxacin Allergy Swelling Verified 02/03/17 10:28 of Lip/Tongue/Throat Penicillins Allergy Swelling Verified 02/03/17 10:28 of Lip/Tongue/Throat Procedures/tests Complete & Pending: Procedures Performed prior 72 hours Category Date Time Status MR lower leg LT wo/w con [MR] Stat MRI 02/04/17 18:41 Completed Date of admission: 02/03/17 15:58 Primary care physician: Keagan Mcdonald, Consults: 02/03/17 16:10 Consult to Wound Care [CONS] Routine Reason for Consult: Cleansing and dressing recommendations Call Completed: No 02/03/17 19:29 Consult to Podiatry [CONS] Routine Consulting Provider: Podiatry [facility] Reason for Consult: Chronic LLE wound Call Completed: No 02/06/17 08:59 Consult to Infectious Diseases [CONS] Routine Consulting Provider: Infectious Disease [facility] Reason for Consult: Infected venous ulcer, requiring prolonged antibiotics. Kindly review, and for follow up as out-patient Call Completed: No Consult to [employer] [CONS] Stat Reason for SW Consult: Wound care at home, home infusion of antibiotics - Patient Status Disposition: Home, Self-Care Condition: Fair Overall status at discharge: patient is progressing back to baseline - Discharge Instructions Follow Up With: Keagan Mcdonald MD [Primary Care Provider] - 02/15/17 11:30 am - Diet and Activity Activity: resume usual activities as tolerated Diet: regular diet Hospital course: Mr. García is a 66 year old male male with the only PMH of COPD and HTN. He presented with a greater than two-month history of a left posterior calf wound. The patient has been following with a wound team and at [facility]. He has previously been on antibiotics without any improvement. Most recently was on antibiotics for a full 10 day course without any improvement at all. Due to continued drainage, he was sent in by his wound care provider he was put on IV antibiotics with broad average. Consult with infectious disease as well as orthopedics. There was no surgical needs. He had a lower extremity MRI done which showed shallow soft tissue ulceration over the posterior lateral aspect of the distal calf with diffuse cellulitis with no drainable fluid collection. There was no osteomyelitis or acute osseous abnormality. He was recommended to be discharged on IV cefepime for 5 more days as well as oral Zyvox for 5 more days. The patient had already received 5 days of IV antibiotics while hospitalized. He had cultures from the wound on his left scalp sent and it grew Pseudomonas and Enterococcus faecalis.. - Time Spent with Patient Total time spent providing and/or coordinating discharge services: - Constitutional Vitals: Temp Pulse Resp BP Pulse Ox 97.8 F 86 18 150/81 88 02/07/17 10:35 02/07/17 10:35 02/07/17 10:58 02/07/17 10:35 02/07/17 10:58 General appearance: Present: cooperative, A&O X 3, morbidly obese, no acute distress, answers questions appropriately Exam: GEN: NAD CVS: RRR. S1, S2, No m/r/g RESP: CTAB ABD: Soft, NT, ND, +BS EXT: chronic venous changes. LE dressed with b/l swelling in LE NEURO: Nonfocal
--- NOTE | 2017-02-07 11:10 | Physician Discharge Referral ---
Home Health/Hosp Referral Info Transfer to: Home Health - Diagnosis (1) COPD exacerbation Priority: Primary Status: Acute (2) Hypertension Priority: Secondary Status: Chronic (3) Cellulitis Priority: Secondary Status: Acute - Respiratory Orders Smoking Cessation: Smoking cessation has been advised. For more information, call the [place] Tobacco Quit Line at 9-866-BYHS-NOW. - Diet/Nutrition Diet/Nutrition Orders: Regular - Services Needed Following services are medically necessary services: Home Infusion - Transfer Medications Prescriptions: Cefepime HCl/Dextrose, Iso-Osm [Cefepime 2 gm Injection] 2 gm IV Q12H 5 Days # 10 froz.piggy Linezolid [Zyvox] 600 mg PO BID #10 tablet predniSONE [PredniSONE] 40 mg PO DAILY #2 tablet Home Medications: Lisinopril [Zestril] 10 mg PO DAILY 01/18/16 [History] Montelukast Sodium [Singulair] 10 mg PO DAILY 01/18/16 [History] Tramadol HCl [Ultram] 50 mg PO DAILY PRN 01/18/16 [History] Albuterol Sulfate [Proair Hfa] 1 puff IH Q4H PRN 12/02/16 [History] Fluticasone/Salmeterol [Advair 250-50 Diskus] 1 each IH BID 12/02/16 [History] Ammonium Lactate [Amlactin] 400 gm TP DAILY #1 bottle 12/29/16 [Rx] Furosemide [Lasix] 40 mg PO DAILY 02/03/17 [History] Ipratropium/Albuterol Neb [Duoneb] 3 ml IH Q6HR PRN 02/03/17 [History] Cefepime HCl/Dextrose, Iso-Osm [Cefepime 2 gm Injection] 2 gm IV Q12H 5 Days # 10 froz.piggy 02/07/17 [Rx] Linezolid [Zyvox] 600 mg PO BID #10 tablet 02/07/17 [Rx] predniSONE [PredniSONE] 40 mg PO DAILY #2 tablet 02/07/17 [Rx] Allergies/Adverse Reactions: 3 Allergy/AdvReac Type Severity Reaction Status Date / Time levofloxacin Allergy Swelling Verified 02/03/17 10:28 of Lip/Tongue/Throat Penicillins Allergy Swelling Verified 02/03/17 10:28 of Lip/Tongue/Throat Certification: Further, I certify that my clinical findings support that this patient is homebound (i.e. absences from home require considerable and taxing effort and are for medical reasons or druze services or infrequently or short duration when for other reasons) because: Homebound Reason: Patient requires assistance of a person or device to safely leave home Attestation: My signature below is to certify that this patient is under my care and that I, or nurse practitioner, or a physician's geological survey field assistant working with me, has a face-to -face encounter with this patient.
--- NOTE | 2017-02-07 11:30 | Infectious Disease Consult ---
Date of Encounter: 02/07/17 Time of Encounter: 11:25 Assessment and Plan (1) Leukocytosis Status: Resolved Assessment and plan: Likely secondary to recent steroid use. Resolved. Qualifiers: Leukocytosis type: leukemoid reaction Qualified Code(s): D72.823 - Leukemoid reaction (2) Cellulitis Status: Acute Assessment and plan: Location: LLE. Causative organism PSEA and E. faecalis. Secondary to non-healing LLE venous ulcer. Improved. No erythema or warmth noted at this time. Due to the patient's allergies and the susceptibility patterns of the causative organisms, the patient will require IV antibiotics after discharge. Continue Cefepime, but change dose to 2 grams IV Q12H. Discontinue Vanc. Start linezolid 600mg PO Q12H. Duration of treatment to total 10 days. Treat through 02/12/17. Will need to set the patient up with [facility] [place] to have PICC line pulled. Change PICC dressing prior to discharge to avoid the patient having to have the dressing changed as an outpatient. Continue follow-up with wound care. Monitor renal function and dose-adjust antibiotics. Qualifiers: Site of cellulitis: extremity Site of cellulitis of extremity: lower extremity Laterality: left Qualified Code(s): L03.116 - Cellulitis of left lower limb (3) Venous ulcer of leg Status: Chronic Assessment and plan: Non-healing. Likely multifactorial: PVD + obesity + lymphedema + tobacco abuse. Continue to follow with wound care team. Qualifiers: Laterality: bilateral Qualified Code(s): I83.019 - Varicose veins of right lower extremity with ulcer of unspecified site; I83.029 - Varicose veins of left lower extremity with ulcer of unspecified site; I83.029 - Varicose veins of left lower extremity with ulcer of unspecified site; I83.029 - Varicose veins of left lower extremity with ulcer of unspecified site (4) Tobacco abuse Status: Chronic Assessment and plan: Discussed the importance of tobacco cessation and its impact on wound healing. (5) Obesity Status: Chronic Qualifiers: Obesity type: due to excess calories Obesity classification: adult class 3 (BMI >= 40) Serious obesity comorbidity presence: without serious comorbidity Body mass index: BMI 45.0-49.9 Qualified Code(s): E66.01 - Morbid (severe) obesity due to excess calories; Z68.42 - Body mass index (BMI) 45.0-49.9, adult ; Z68.42 - Body mass index (BMI) 45.0-49.9, adult; Z68.42 - Body mass index (BMI ) 45.0-49.9, adult; Z68.42 - Body mass index (BMI) 45.0-49.9, adult (6) Venous (peripheral) insufficiency Status: Acute Infectious Disease HPI - Data of Consult Patient: new to practice Consult date: 02/07/17 Requesting Physician: Cl Sanchez MD Primary Care Provider: Keagan Mcdonald, - Consult Narrative Reason for consult: LLE Ulcer infection History of present illness: Mr. García is a 66 year old male past medical history of COPD, hypertension, and bilateral lower extremity lymphedema. The patient was admitted to the hospital February 03 for worsening left leg infection. We are consulted February 07 for antibiotic recommendations regarding a left lower extremity ulcer infection. The patient's 66-year-old male with past medical history as stated above. The patient has had an ongoing history of a left lower extremity venous ulcer that started about 2 months ago secondary to bilateral lower extremity lymphedema. He states he's been seeing the wound clinic over [facility] 3 times a week in the right leg improved, but he continues to have a nonhealing ulcer to the posterior aspect of his left lower extremity. He states that he had an increase in the amount and purulence of the drainage coming from the wound and was advised by his wound care doctor to come to the hospital for admission. He states he had some things taken care of at home, but came back to the emergency department the day after. Upon arrival, the patient was afebrile and hemodynamically stable. His white blood cell count was normal. His lactic acid level and renal function were normal as well. A wound culture was obtained that was positive for Pseudomonas and Enterococcus faecalis. He was started on IV antibiotics and admitted to the hospital for further evaluation. Since admission, the patient has remained afebrile and hemodynamically stable. He did have an episode of leukocytosis, but this is likely secondary to the steroids that were started upon admission. She had a left lower extremity MRI that showed findings consistent with cellulitis, but no abscess or osteomyelitis. No inflammatory markers were checked. The patient was originally started on meropenem and vancomycin was added yesterday. The meropenem was also discontinued and he was transitioned to IV cefepime. We have been asked to evaluate and make further recommendations. My exam today, the patient states that overall he was feeling well. He denies any fevers or chills or rigors. He denies any headache or neck pain. He denies any congestion, earache, or sore throat. Eyes any chest pain or cough. He does report chronic shortness of breath that appears to be at baseline secondary to his COPD. He denies any nausea, vomiting, diarrhea, or constipation. He denies abdominal pain or urinary complaints. His appetite has been good. Denies any pain at the site of the ulcer except when dressing changes are being completed. He denies oral thrush or any other new skin lesions. The patient lives at home with his in [place]. He works as a oxyacetylene welder. He denies any recent trauma to the lower extremities. He denies any recent travel outside the [facility]. He does smoke about three fourths of a pack of cigarettes per day. He denies any alcohol or illicit drug use. CC: Cl Sanchez MD Past Med Surg Social Fam HX - Past Medical History Attestation: Yes The following information was validated with the patient. Source: patient, old records reviewed, nursing notes reviewed Medical history: COPD, hypertension, other (Bilateral lower extremity lymphedema ) Psychiatric history: no psych history - Past Surgical History Surgical History: appendectomy, herniorrhaphy (X2) - Social History Smoking Status: Current every day smoker Packs per day: 3/4 Smokeless Tobacco Status: No Alcohol use: none Drug use: none Occupational status: employed Current living situation: Home - Independent Activity Level: Independent ambulation Recent Out of Country Travel Within the Last 8 Weeks: No Exposure or Possible Exposure to Illness During Travel: No Infectious Disease-CN:Meds Lisinopril [Zestril] 10 mg PO DAILY 01/18/16 [History] Montelukast Sodium [Singulair] 10 mg PO DAILY 01/18/16 [History] Tramadol HCl [Ultram] 50 mg PO DAILY PRN 01/18/16 [History] Albuterol Sulfate [Proair Hfa] 1 puff IH Q4H PRN 12/02/16 [History] Fluticasone/Salmeterol [Advair 250-50 Diskus] 1 each IH BID 12/02/16 [History] Ammonium Lactate [Amlactin] 400 gm TP DAILY #1 bottle 12/29/16 [Rx] Furosemide [Lasix] 40 mg PO DAILY 02/03/17 [History] Ipratropium/Albuterol Neb [Duoneb] 3 ml IH Q6HR PRN 02/03/17 [History] Cefepime HCl/Dextrose, Iso-Osm [Cefepime 2 gm Injection] 2 gm IV Q12H 5 Days # 10 [email or web address] 02/07/17 [Rx] Linezolid [Zyvox] 600 mg PO BID #10 tablet 02/07/17 [Rx] predniSONE [PredniSONE] 40 mg PO DAILY #2 tablet 02/07/17 [Rx] 3 Allergy/AdvReac Type Severity Reaction Status Date / Time levofloxacin Allergy Swelling Verified 02/03/17 10:28 of Lip/Tongue/Throat Penicillins Allergy Swelling Verified 02/03/17 10:28 of Lip/Tongue/Throat All systems: reviewed and no additional remarkable complaints except as stated Exam - Constitutional Vitals: Temp Pulse Resp BP Pulse Ox 97.8 F 86 18 150/81 88 02/07/17 10:35 02/07/17 10:35 02/07/17 10:58 02/07/17 10:35 02/07/17 10:58 General appearance: cooperative, morbidly obese, no acute distress - Head Head exam: Present: atraumatic, normal inspection, normocephalic - Eye Eye exam: Present: EOMI, normal appearance, PERRL Pupils: Present: normal accommodation - ENT ENT exam: Present: mucous membranes moist - Neck Neck exam: Present: normal inspection - Respiratory Respiratory exam: Present: CTAB. Absent: rales, respiratory distress, rhonchi, wheezes - Cardiovascular Cardiovascular exam: Present: RRR, +S1, +S2 - GI/Abdominal GI/Abdominal exam: Present: distended (Obese), normal bowel sounds, soft. Absent: tenderness - Extremities Exam Additional comments: UNNA boot noted to the RLE. LLE noted with stage II ulcer noted to the posterior aspect of left lower leg with scant dark yellow drainage. No foul odor or fluctuance noted. - Neurological Exam Neurological exam: Present: alert, oriented X3, no focal deficits - Psychiatric Psychiatric exam: Present: normal affect, normal mood - Skin Skin exam: Present: dry, intact, normal color, warm Infectious Disease CN: Results - Labs CBC & Chem 7: 02/07/17 04:25 02/07/17 04:25 Cultures: Cultures 02/03/17 18:40 Wound Culture - Final Left Leg Pseudomonas aeruginosa Enterococcus faecalis Consult Discharge Plan - Plan Referrals: Keagan Mcdonald MD [Primary Care Provider] - 02/15/17 11:30 am Prescriptions: Cefepime HCl/Dextrose, Iso-Osm [Cefepime 2 gm Injection] 2 gm IV Q12H 5 Days # 10 froz.piggy Linezolid [Zyvox] 600 mg PO BID #10 tablet predniSONE [PredniSONE] 40 mg PO DAILY #2 tablet
--- NOTE | 2017-02-07 11:46 | Physician Discharge Referral ---
Home Health/Hosp Referral Info Transfer to: Home Health - Diagnosis (1) COPD exacerbation Status: Acute (2) Hypertension Priority: Secondary Status: Chronic (3) Cellulitis Priority: Primary Status: Acute - Respiratory Orders Smoking Cessation: Smoking cessation has been advised. For more information, call the [place] Tobacco Quit Line at 8-457-FSSU-NOW. - Dressing/Wound Care Site: left calf - Services Needed Following services are medically necessary services: Nursing (wound care) Other Treatments: wound care twice a week - Transfer Medications Prescriptions: Cefepime HCl/Dextrose, Iso-Osm [Cefepime 2 gm Injection] 2 gm IV Q12H 5 Days # 10 froz.piggy Linezolid [Zyvox] 600 mg PO BID #10 tablet predniSONE [PredniSONE] 40 mg PO DAILY #2 tablet Home Medications: Lisinopril [Zestril] 10 mg PO DAILY 01/18/16 [History] Montelukast Sodium [Singulair] 10 mg PO DAILY 01/18/16 [History] Tramadol HCl [Ultram] 50 mg PO DAILY PRN 01/18/16 [History] Albuterol Sulfate [Proair Hfa] 1 puff IH Q4H PRN 12/02/16 [History] Fluticasone/Salmeterol [Advair 250-50 Diskus] 1 each IH BID 12/02/16 [History] Ammonium Lactate [Amlactin] 400 gm TP DAILY #1 bottle 12/29/16 [Rx] Furosemide [Lasix] 40 mg PO DAILY 02/03/17 [History] Ipratropium/Albuterol Neb [Duoneb] 3 ml IH Q6HR PRN 02/03/17 [History] Cefepime HCl/Dextrose, Iso-Osm [Cefepime 2 gm Injection] 2 gm IV Q12H 5 Days # 10 froz.piggy 02/07/17 [Rx] Linezolid [Zyvox] 600 mg PO BID #10 tablet 02/07/17 [Rx] predniSONE [PredniSONE] 40 mg PO DAILY #2 tablet 02/07/17 [Rx] Allergies/Adverse Reactions: 3 Allergy/AdvReac Type Severity Reaction Status Date / Time levofloxacin Allergy Swelling Verified 02/03/17 10:28 of Lip/Tongue/Throat Penicillins Allergy Swelling Verified 02/03/17 10:28 of Lip/Tongue/Throat Certification: Further, I certify that my clinical findings support that this patient is homebound (i.e. absences from home require considerable and taxing effort and are for medical reasons or gnosticism services or infrequently or short duration when for other reasons) because: Homebound Reason: Patient requires assistance of a person or device to safely leave home Attestation: My signature below is to certify that this patient is under my care and that I, or nurse practitioner, or a physician's escrow assistant working with me, has a face-to -face encounter with this patient.
[2017-02-07] MEDS: Ammonium Lactate 30 APPL/225 GM BOTTLE TP SCH (12:53)
[2017-02-07] MEDS ORDERED: Aminoglycoside Consult 1 EACH MC ONE (17:31)
[2017-02-07] MEDS ORDERED: Cefepime HCl 2,000 MG in Water for inj. (sterile) 20 ML IVP SCH (18:00)
[2017-02-07] MEDS ORDERED: Linezolid 600 MG TABLET PO SCH (21:00)
== END 2017-02-07 17:32 | disposition home or self-care (01) | DRG 603 ==
LOC: EMEROO 10:20 → 3ANU 10:20 → SUATTDRO 15:58
PROVIDERS: ADMIT Internal Medicine; ATTEND Internal Medicine

== ENCOUNTER 2020-03-28 22:06 | Observation (INO) ==
[2020-03-29] MEDS ORDERED: Acetaminophen 325 MG TABLET PO PRN (02:04)
[2020-03-29] MEDS ORDERED: Ondansetron 4 MG/2 ML VIAL IVP PRN (02:04)
[2020-03-29] MEDS ORDERED: SODIUM CHLORIDE/NAHCO3/KCL/PEG 4,000 ML SOLN.RECON PO ONE ×2 (02:12→04:33)
[2020-03-29] MEDS ORDERED: Pantoprazole 40 MG VIAL IVP ONE (02:55)
[2020-03-29] MEDS ORDERED: Pantoprazole 80 MG in 0.9 % Sodium Chloride 50 ML IVPB ONE (03:00)
[2020-03-29] MEDS ORDERED: Ipratropium/Albuterol Neb 3 ML IH PRN (03:11)
[2020-03-29] MEDS: Pantoprazole 40 MG in 0.9 % Sodium Chloride Mini Bag 100 ML IVC SCH ×5 (03:48→23:36)
[2020-03-29 05:56] LABS: Hematocrit 36.1 % (37.5-50.1); Hemoglobin 11.6 g/dL (12.9-16.9); Mean Corpuscular HGB Conc 32.1 g/dL (31.6-35.5); Mean Corpuscular Hemoglobin 30.7 pg (28.0-33.3); Mean Corpuscular Volume 95.5 fL (83.0-100.0); Mean Platelet Volume 10.8 fL (9.4-12.4); Platelet Count 256 K/mcL (140-400); Red Blood Count 3.78 M/mcL (4.19-5.50); Red Cell Distribution Width 14.5 % (11.5-14.5); White Blood Count 14.5 K/mcL (4.3-11.1)
[2020-03-29 06:43] LABS: BUN/Creatinine Ratio 22 (6-26); Blood Urea Nitrogen 16 mg/dL (8-23); Calcium 8.3 mg/dL (8.6-10.3); Carbon Dioxide 24 mEq/L (23-29); Chloride 103 mEq/L (98-107); Glucose 137 mg/dL (70-105); Osmolality,Calculated 285 (280-300); Potassium 3.9 mEq/L (3.5-5.1); Sodium 136 mEq/L (136-145); eGFR For African Americans > 60 (> 60); eGFR For Non-African Americans > 60 (> 60)
[2020-03-29] MEDS: Ipratropium/Albuterol Neb 3 ML IH SCH ×3 (11:07→22:16)
[2020-03-29 12:18] LABS: Hematocrit 32.1 % (37.5-50.1); Hemoglobin 10.2 g/dL (12.9-16.9)
[2020-03-29 20:32] LABS: Hematocrit 28.7 % (37.5-50.1); Hemoglobin 9.3 g/dL (12.9-16.9)
[2020-03-30] MEDS: Pantoprazole 40 MG in 0.9 % Sodium Chloride Mini Bag 100 ML IVC SCH ×2 (04:05→09:37)
[2020-03-30 04:23] LABS: Basophils # 0.1 K/mcL (0.0-0.2); Basophils % 0.5 %; Eosinophils # 0.3 K/mcL (0.0-0.6); Eosinophils % 2.6 %; Hematocrit 28.1 % (37.5-50.1); Hemoglobin 8.9 g/dL (12.9-16.9); Immature Granulocytes % 0.9 % (0-4); Lymphocytes % 20.5 %; Mean Corpuscular HGB Conc 31.7 g/dL (31.6-35.5); Mean Corpuscular Hemoglobin 31.1 pg (28.0-33.3); Mean Corpuscular Volume 98.3 fL (83.0-100.0); Mean Platelet Volume 11.4 fL (9.4-12.4); Monocytes % 10.6 %; Neutrophils # 6.4 K/mcL (1.6-8.9); Nucleated Red Blood Cells 0.2 /100 WBC (0); Platelet Count 173 K/mcL (140-400); Red Blood Count 2.86 M/mcL (4.19-5.50); Red Cell Distribution Width 14.7 % (11.5-14.5); Segmented Neutrophils % 64.9 %; White Blood Count 9.8 K/mcL (4.3-11.1)
[2020-03-30 04:24] LABS: INR 1.1; Prothrombin Time 13.2 Seconds (9.4-12.1)
[2020-03-30] MEDS: Ipratropium/Albuterol Neb 3 ML IH SCH ×4 (04:28→21:41)
[2020-03-30 04:39] LABS: BUN/Creatinine Ratio 16 (6-26); Blood Urea Nitrogen 11 mg/dL (8-23); Calcium 7.8 mg/dL (8.6-10.3); Carbon Dioxide 24 mEq/L (23-29); Chloride 107 mEq/L (98-107); Glucose 117 mg/dL (70-105); Osmolality,Calculated 284 (280-300); Potassium 3.5 mEq/L (3.5-5.1); Sodium 137 mEq/L (136-145); eGFR For African Americans > 60 (> 60); eGFR For Non-African Americans > 60 (> 60)
[2020-03-30] MEDS: Budesonide/Formoterol 80/4.5 1 PUFF INH IH SCH (10:12)
[2020-03-30] MEDS ORDERED: Lidocaine -MPF 2% 2 ML VIAL ONE (11:21)
[2020-03-30] MEDS ORDERED: *HR* Propofol 200 MG/20 ML VIAL IVP ONE (11:54)
[2020-03-30] MEDS ORDERED: NON-FORMULARY MEDICATION 1 EACH EACH (Fluticasone/Salmeterol [Advair 250-50 Diskus] 1 PUFF IH SCH (15:30)
[2020-03-30 15:50] LABS: Hematocrit 28.2 % (37.5-50.1); Hemoglobin 8.8 g/dL (12.9-16.9)
[2020-03-30] MEDS: Doxycycline 100 MG CAPSULE PO SCH (16:06)
[2020-03-31] MEDS: Ipratropium/Albuterol Neb 3 ML IH SCH ×4 (04:09→22:00)
[2020-03-31 05:27] LABS: Basophils % 0.4 %; Eosinophils # 0.3 K/mcL (0.0-0.6); Eosinophils % 2.4 %; Hematocrit 25.8 % (37.5-50.1); Hemoglobin 7.9 g/dL (12.9-16.9); Immature Granulocytes % 1.4 % (0-4); Lymphocytes # 2.1 K/mcL (0.6-4.6); Lymphocytes % 20.5 %; Mean Corpuscular HGB Conc 30.6 g/dL (31.6-35.5); Mean Corpuscular Hemoglobin 29.9 pg (28.0-33.3); Mean Corpuscular Volume 97.7 fL (83.0-100.0); Mean Platelet Volume 10.6 fL (9.4-12.4); Monocytes # 0.8 K/mcL (0.0-1.3); Monocytes % 8.2 %; Neutrophils # 6.9 K/mcL (1.6-8.9); Nucleated Red Blood Cells 0.4 /100 WBC (0); Platelet Count 221 K/mcL (140-400); Red Blood Count 2.64 M/mcL (4.19-5.50); Segmented Neutrophils % 67.1 %; White Blood Count 10.2 K/mcL (4.3-11.1)
[2020-03-31 05:44] LABS: BUN/Creatinine Ratio 10 (6-26); Blood Urea Nitrogen 8 mg/dL (8-23); Carbon Dioxide 26 mEq/L (23-29); Chloride 106 mEq/L (98-107); Glucose 150 mg/dL (70-105); Osmolality,Calculated 287 (280-300); Potassium 3.4 mEq/L (3.5-5.1); Sodium 138 mEq/L (136-145); eGFR For African Americans > 60 (> 60); eGFR For Non-African Americans > 60 (> 60)
[2020-03-31] MEDS: Doxycycline 100 MG CAPSULE PO SCH (08:08)
[2020-03-31] MEDS: Budesonide/Formoterol 80/4.5 1 PUFF INH IH SCH (10:07)
[2020-03-31] MEDS ORDERED: 0.9 % Sodium Chloride 250 ML IVC SCH (10:45)
[2020-03-31] MEDS: Furosemide 40 MG TABLET PO SCH (16:32)
[2020-03-31 19:06] LABS: Hematocrit 30.9 % (37.5-50.1); Hemoglobin 9.8 g/dL (12.9-16.9)
[2020-03-31] MEDS: Pantoprazole 40 MG in 0.9 % Sodium Chloride Mini Bag 100 ML IVC SCH (19:46)
[2020-04-01 02:42] LABS: Basophils # 0.1 K/mcL (0.0-0.2); Basophils % 0.6 %; Eosinophils # 0.4 K/mcL (0.0-0.6); Hematocrit 29.7 % (37.5-50.1); Hemoglobin 9.4 g/dL (12.9-16.9); Immature Granulocytes % 1.4 % (0-4); Lymphocytes # 1.9 K/mcL (0.6-4.6); Lymphocytes % 20.4 %; Mean Corpuscular HGB Conc 31.6 g/dL (31.6-35.5); Mean Corpuscular Hemoglobin 30.5 pg (28.0-33.3); Mean Corpuscular Volume 96.4 fL (83.0-100.0); Mean Platelet Volume 10.9 fL (9.4-12.4); Monocytes % 10.5 %; Neutrophils # 5.9 K/mcL (1.6-8.9); Platelet Count 223 K/mcL (140-400); Red Blood Count 3.08 M/mcL (4.19-5.50); Red Cell Distribution Width 15.9 % (11.5-14.5); Segmented Neutrophils % 63.1 %; White Blood Count 9.3 K/mcL (4.3-11.1)
[2020-04-01 03:02] LABS: BUN/Creatinine Ratio 10 (6-26); Blood Urea Nitrogen 7 mg/dL (8-23); Calcium 8.5 mg/dL (8.6-10.3); Carbon Dioxide 28 mEq/L (23-29); Chloride 106 mEq/L (98-107); Glucose 132 mg/dL (70-105); Osmolality,Calculated 290 (280-300); Potassium 3.5 mEq/L (3.5-5.1); Sodium 140 mEq/L (136-145); eGFR For African Americans > 60 (> 60); eGFR For Non-African Americans > 60 (> 60)
[2020-04-01] MEDS: Ipratropium/Albuterol Neb 3 ML IH SCH ×2 (04:04→09:50)
[2020-04-01 07:19] VITALS: BP 124/78
[2020-04-01] MEDS: Doxycycline 100 MG CAPSULE PO SCH (07:49)
[2020-04-01] MEDS: Furosemide 40 MG TABLET PO SCH (07:50)
[2020-04-01] MEDS ORDERED: lisinopriL 10 MG TABLET PO SCH (09:00)
[2020-04-01] MEDS: Budesonide/Formoterol 80/4.5 1 PUFF INH IH SCH (09:50)
== END 2020-04-01 11:26 | disposition home or self-care (01) ==
LOC: 3ANU → SUATTDRO 03-29 00:51
PROVIDERS: ADMIT Family Medicine; ATTEND Family Medicine